=== PATIENT | female | born 1990 | race Two or more races ===

== ENCOUNTER 2016-03-03 02:28 | Inpatient (IN) | payer OTHER ==
[2016-03-03] VITALS (11 sets, daily range): BP systolic 119–196; BP diastolic 74–141
[~2016-03-03 02:28] MED LIST: BENADRYL ALLERG25 MG PO; BENTYL20 MG PO; FLAGYL500 MG PO; NAPROSYN-EC500 MG PO; NOHOMEMEDS; PEPCID20 MG PO; PERCOCET 5/31 TABLET PO; PHENERGAN25 MG PR; PRENATAL TABLE1 EAC3 PO; PROMETHAZINE HC25 M1 PO; ULTRAM50 MG PO; VITAMIN B-625 MG PO; ZOFRAN ODT4 MG PO; ZOFRAN ODT8 MG PO; ZOFRAN4 MG PO; ZOFRAN8 MG PO; [UNRECOGNIZED DRUG - OTHER] PO; [UNRECOGNIZED DRUG - REMARK]
[2016-03-03] MEDS ORDERED: IBUPROFEN800 MG PO (03:18)
[2016-03-03] MEDS ORDERED: ENDOCET 5-3251 EACH PO (03:18)
[2016-03-04 07:34] LABS: EOSINOPHIL (%) 0.6 % (0-5); EOSINOPHIL COUNT 0.1 K/uL (0-0.3); IMMATURE GRANULOCYTE (%) 0.3 % (0.0-0.7); LYMPHOCYTE COUNT 3.5 K/uL (1.0-2.8); MONOCYTE (%) 7.5 % (3-12); MONOCYTE COUNT 0.7 K/uL (0-0.8); NEUTROPHIL (%) 52.6 % (45-76); NEUTROPHIL COUNT 4.8 K/uL (1.8-6.4)
[2016-03-04 07:44] VITALS: BP 126/89
[2016-03-04 08:24] LABS: HEMATOCRIT 32.1 % (36.0-46.0); MCH 29.1 PG (29.0-34.0); MCHC 32.4 G/DL (30.0-36.0); MCV 89.7 FL (83-99); RBC DIS.WIDTH-CV 13.6 % (11.8-14.6); RED BLOOD COUNT 3.58 M/uL (3.80-5.20)
[2016-03-04 08:52] LABS: MEAN PLAT.VOLUME 13.3 uM^3 (9.5-12.4); PLAT.SUFFICIENCY DECREASED; PLATELET COUNT 88 K/uL (156-360); USER ID SDF
[2016-03-04 15:00] VITALS: BP 124/89
[2016-03-04 22:48] VITALS: BP 140/88
[2016-03-05 08:15] VITALS: BP 133/87
== END 2016-03-05 11:40 | disposition home or self-care (01) | DRG 774 ==
LOC: LDRP-OP → 2WEST 02:29 → LDRP-OP 04-11 21:53
PROVIDERS: Obstetrics & Gynecology
DX: O70.0 First degree perineal laceration during delivery (principal); O34.219 Maternal care for unspecified type scar from previous cesarean delivery; O98.52 Other viral diseases complicating childbirth; A60.04 Herpesviral vulvovaginitis; O98.32 Other infections with a predominantly sexual mode of transmission complicating childbirth; J45.909 Unspecified asthma, uncomplicated; O99.824 Streptococcus B carrier state complicating childbirth; D69.6 Thrombocytopenia, unspecified; Z3A.38 38 weeks gestation of pregnancy; O77.0 Labor and delivery complicated by meconium in amniotic fluid; Z37.0 Single live birth; O99.12 Other diseases of the blood and blood-forming organs and certain disorders involving the immune mechanism complicating childbirth; O99.52 Diseases of the respiratory system complicating childbirth; O69.1XX0 Labor and delivery complicated by cord around neck, with compression, not applicable or unspecified; O99.324 Drug use complicating childbirth; O99.334 Smoking (tobacco) complicating childbirth; F17.200 Nicotine dependence, unspecified, uncomplicated; F12.90 Cannabis use, unspecified, uncomplicated
CPT/HCPCS: 85025

== ENCOUNTER 2017-01-30 09:41 | Day surgery (SDC) | payer OTHER ==
[~2017-01-30] VITALS: Ht 152.4 cm; Wt 56.1 kg
[~2017-01-30 09:41] MED LIST changes: +ENDOCET 5-3251 EACH PO; +IBUPROFEN800 MG PO
[2017-01-30 10:34] LABS: HEMATOCRIT 41.6 % (36.0-46.0); MCH 30.2 PG (29.0-34.0); MCHC 33.4 G/DL (30.0-36.0); MCV 90.4 FL (83-99); RBC DIS.WIDTH-CV 15.9 % (11.8-14.6); RBC DIS.WIDTH-SD 52.7 % (39-53); WHITE BLOOD COUNT 10.5 K/uL (4.1-10.2)
[2017-01-30 10:47] LABS: CHLORIDE 103 mEq/L (99-109); SODIUM 137 mEq/L (136-147)
[2017-01-30 10:49] LABS: GLUCOSE 106 mg/dL (70-99)
[2017-01-30 10:50] LABS: ANION GAP 10 MEQ/L (2-14)
[2017-01-30 10:51] LABS: TOTAL BILIRUBIN 1.1 mg/dL (0.0-1.0)
[2017-01-30 10:53] LABS: ALKALINE PHOSPHATASE 63 IU/L (3-129); GFR ESTIMATE (CALCULATED) > 59 mL/min/
[2017-01-30 10:54] LABS: UREA NITROGEN (BUN) 16 mg/dL (9-23)
[2017-01-30 11:18] LABS: MEAN PLAT.VOLUME 11.5 uM^3 (9.5-12.4); PLAT.SUFFICIENCY ADEQUATE; PLATELET COUNT 204 K/uL (156-360)
[2017-01-30 12:49] LABS: BILIRUBIN NEGATIVE; BLOOD NEGATIVE; COLOR YELLOW ((YELLOW)); GLUCOSE (STRIP) NEGATIVE; KETONES 20; LEUKOCYTES NEGATIVE; NITRITE NEGATIVE; PROTEIN (STRIP) 30; SPECIFIC GRAVITY 1.033 (1.000-1.030); UCUL ADDED? NO
[2017-01-30 12:50] LABS: ADD MIUA? YES
[2017-01-30 12:56] LABS: BACTERIA NONE SEEN /HPF; EPITHELIAL CELLS 1+ /HPF; HYALINE CASTS 0-5 /LPF; MUCUS 4+ /LPF; RED BLOOD CELLS 0-5 /HPF (0-5); WHITE BLOOD CELLS 0-5 /HPF (0-5)
[2017-01-30 17:55] VITALS: BP 114/75
[2017-01-30 18:40] VITALS: BP 124/76
== END 2017-01-30 18:45 | disposition home or self-care (01) ==
LOC: EME 09:41 → SDC 15:15
DX: O00.109 Unspecified tubal pregnancy without intrauterine pregnancy (principal); K66.1 Hemoperitoneum; R11.2 Nausea with vomiting, unspecified; J45.909 Unspecified asthma, uncomplicated; Z88.0 Allergy status to penicillin; F17.200 Nicotine dependence, unspecified, uncomplicated
CPT/HCPCS: 76801; 80053; 81003; 84702; 85027; 86850; 86900; 86901; 88305; 93005; 99281; 99285; J0690; J1100; J1170; J1885; J2250; J2270; J2405; J2710; J3010; J7030

== ENCOUNTER 2017-05-20 13:13 | Emergency (ER) | payer OTHER ==
[~2017-05-20] VITALS: Ht 154.9 cm; Wt 60.0 kg
[2017-05-20] MEDS ORDERED: ZOFRAN ODT8 MG PO (13:51)
[2017-05-20] MEDS ORDERED: CLONIDINE HCL0.1 MG PO (13:51)
[2017-05-20 14:34] LABS: HEMATOCRIT 40.1 % (36.0-46.0); HEMOGLOBIN 13.9 G/DL (11.9-15.5); MCH 30.5 PG (29.0-34.0); MCHC 34.7 G/DL (30.0-36.0); MCV 88.1 FL (83-99); RBC DIS.WIDTH-CV 13.9 % (11.8-14.6); RBC DIS.WIDTH-SD 44.8 % (39-53); RED BLOOD COUNT 4.55 M/uL (3.80-5.20); WHITE BLOOD COUNT 11.3 K/uL (4.1-10.2)
[2017-05-20 14:44] LABS: CHLORIDE 109 mEq/L (99-109); POTASSIUM 3.7 mEq/L (3.7-5.4); SODIUM 141 mEq/L (136-147)
[2017-05-20 14:46] LABS: GLUCOSE 121 mg/dL (70-99)
[2017-05-20 14:50] LABS: CREATININE 0.9 mg/dL (0.6-1.3); GFR ESTIMATE (CALCULATED) > 59 mL/min/; UREA NITROGEN (BUN) 12 mg/dL (9-23)
[2017-05-20 14:57] LABS: QUANTITATIVE HCG < 4.0 MIU/ML
[2017-05-20 15:36] LABS: PLATELET CLUMPS PRESENT - PLATELET COUNT APPEARS ADQ.; PLATELET COUNT UNABLE TO REPORT K/uL (156-360)
[2017-05-20 16:00] VITALS: BP 165/96
== END 2017-05-20 16:04 | disposition home or self-care (01) ==
LOC: EME 13:13
PROVIDERS: Emergency Medicine Emergency Medical Services
DX: F11.23 Opioid dependence with withdrawal (principal); J45.909 Unspecified asthma, uncomplicated; Z72.0 Tobacco use; Z88.0 Allergy status to penicillin
CPT/HCPCS: 80048; 84702; 85027; 99281; 99285; J0780; J2405; J7120